=== PATIENT | female | born 1985 | race Caucasian/White ===

== ENCOUNTER 2016-11-06 06:32 | Inpatient (IN) | payer MEDICAID ==
[~2016-11-06] VITALS: Ht 170.2 cm; Wt 69.9 kg
--- NOTE | ~2016-11-06 | OR ---
PATIENT'S NAME: [facility] AGE: 30 Y [address] ROOM: [place] [address] LOCATION: GOBS ADMIT DATE: 11/06/2016 OR/Procedure Report DISCHARGE DATE: FAMILY PHYSICIAN: Elma Wagner MD ATTENDING PHYSICIAN: IGNACIO RUSSELL SURGEON: Ignacio Russell MD LAUNCH CHECK OUT: Elma Wagner M.D. Her assistance was required for delivery of fetus and adequate exposure during the case. DATE OF PROCEDURE: 11/06/2016 PREOPERATIVE DIAGNOSES: 1. Intrauterine at 39 weeks, 6 days. 2. History of 3 previous sections. 3. Gestational diabetes mellitus A2. 4. Late presentation to care. POSTOPERATIVE DIAGNOSES: 1. Intrauterine at 39 weeks, 6 days. 2. History of 3 previous sections. 3. Gestational diabetes mellitus A2. 4. Late presentation to care. PROCEDURE PERFORMED: Repeat low transverse section. ANESTHESIA: Spinal. FINDINGS: Viable female infant with Apgars of 6 and 8 and weight of 8 pounds 10 ounces. Placenta with three-vessel cord intact. Normal fallopian tubes and ovaries. Normal uterus. Uterine atony. ESTIMATED BLOOD LOSS: 800 mL. COMPLICATIONS: None. INDICATIONS: The patient is a 30-year-old, -0-0-3, with intrauterine at 39 weeks 6 days, who presented to Labor and Delivery for scheduled repeat section. She has previously been counseled about the risks of surgery including bleeding, infection, damage to surrounding organs and tissues including bowel, bladder, blood vessels, ureters, nerves. She was also counseled on the risk of needing additional procedures or hospitalizations due to any complications. Prior to the procedure, the patient's blood sugar was checked and it was found to be 83. She did not take her glyburide last night. [facility] 30 [facility] [address] ROOM: [place] [address] LOCATION: [facility] ADMIT DATE: 11/06/2016 OR/Procedure Report DISCHARGE DATE: FAMILY PHYSICIAN: Elma Wagner MD ATTENDING PHYSICIAN: IGNACIO RUSSELL DESCRIPTION OF PROCEDURE: The patient was taken to the operating room where spinal was placed without complication. Andrade catheter was placed. She was placed in dorsal supine position with leftward tilt. She was prepped and draped in the usual sterile fashion. Anesthesia was found to be adequate. A scalpel was then used to make a Pfannenstiel incision and carried down to the underlying fascia. The fascia was scored the fascial incision was extended with Barr scissors. Bilaterally the fascia was dissected off the rectus muscles superiorly and inferiorly with sharp and blunt traction. The peritoneum was identified and entered bluntly. The peritoneal incision was extended. Bladder blade was placed for visualization. Using Metzenbaum scissors a bladder flap was created. The scalpel was then used to make a transverse incision in the lower uterine segment. This was extended in a cephalad caudal direction. Artificial rupture of membranes of clear fluid was performed. The head was then delivered through the incision followed by the remainder of the infant and the cord was clamped and cut. The was taken over to the warmer by Dr. Wagner. Cord blood was obtained. The placenta was then expressed intact. The membranes were remaining and were all removed. The uterus was exteriorized and cleared of remaining clots and debris. It was noted to be very boggy. She was given 0.2 mg of Methergine IM by the anesthesia providers. The hysterotomy was closed in a running locked fashion using 0 chromic suture. Hemostasis was noted. The uterus continued to be boggy, despite massage and methargen. Therefore, she was given 0.25 mg of Hemabate IM. Uterine tone did improve and the uterus was not noted to be filled in with blood or clot. The hysterotomy was reexamined and noted to be hemostatic. The uterus was placed into the abdominal cavity. Rectus muscles and fascia were inspected and noted to be hemostatic. The fascia was then closed in a running fashion using 0 PDS suture. Subcutaneous tissue was irrigated and an any areas of bleeding were cauterized. The skin was then closed in a subcuticular fashion with 4-0 Monocryl, followed by Steri-Strips and a pressure dressing. Instrument, sponge, and needle counts were correct prior to abdominal closure at the conclusion of the case. DISPOSITION: Mom is stable. Baby to NICU, on CPAP. MD ISMAEL AVILA/modl /[id number] d: 11/06/16 0924 t: 11/07/16 1340, OPERATIVE SUMMARY
[2016-11-06 07:07] LABS: BASOPHIL % 0.3 %; EOSINOPHIL # 0.2 K/uL (0.0-0.5); EOSINOPHIL % 1.7 %; HEMATOCRIT 33.7 % (33.0-46.0); HEMOGLOBIN 10.7 g/dL (11.0-15.0); IMMATURE GRANULOCYTE # 0.1 K/uL (0.0-0.3); IMMATURE GRANULOCYTE % 0.6 %; LYMPHOCYTE # 2.8 K/uL (0.8-4.0); LYMPHOCYTE % 31.6 %; MCH 27.2 pg (27.0-34.0); MCHC 31.8 gm/dL (32.0-36.5); MONOCYTE # 0.7 K/uL (0.0-1.0); MONOCYTE % 8.3 %; MPV 11.4 fl (9.4-12.4); NEUTROPHIL # (ANC) 5.2 K/uL (1.8-7.8); NEUTROPHIL % 57.5 %; NRBC % 0 /100WBC (0-0.00); PLATELET COUNT 187 K/uL (150-450); RBC 3.93 M/uL (3.50-5.00)
[2016-11-06 07:08] LABS: MCV 85.8 fl (83.0-98.0)
[2016-11-06] MEDS ORDERED: FEOSOL325 MG PO (07:20)
[2016-11-06] MEDS ORDERED: PRENATAL 1+1)(P1 TAB PO (07:20)
[2016-11-06] MEDS ORDERED: DIABETES MEDICATION (07:21)
[2016-11-07 04:53] LABS: BASOPHIL % 0.2 %; EOSINOPHIL # 0.1 K/uL (0.0-0.5); HEMOGLOBIN 8.3 g/dL (11.0-15.0); IMMATURE GRANULOCYTE # 0.1 K/uL (0.0-0.3); IMMATURE GRANULOCYTE % 0.7 %; LYMPHOCYTE # 1.8 K/uL (0.8-4.0); LYMPHOCYTE % 13.5 %; MCH 27.5 pg (27.0-34.0); MCV 87.1 fl (83.0-98.0); MONOCYTE # 1.1 K/uL (0.0-1.0); MONOCYTE % 7.9 %; MPV 11.1 fl (9.4-12.4); NEUTROPHIL # (ANC) 10.4 K/uL (1.8-7.8); NEUTROPHIL % 76.7 %; NRBC % 0 /100WBC (0-0.00); RBC 3.02 M/uL (3.50-5.00); RDW-CV 16.1 % (11.9-14.6); WBC 13.5 K/uL (4.0-11.0)
[2016-11-07 04:56] LABS: HEMATOCRIT 26.3 % (33.0-46.0); MCHC 31.6 gm/dL (32.0-36.5); PLATELET COUNT 135 K/uL (150-450)
--- NOTE | 2016-11-08 07:00 | NUR ---
D; Upon entering patient's room to introduce myself (at 0700) patient is wide awake, alert & oriented. Asking for more formula bottles, stating it's time for baby to eat. I: More Similac given & Mom fed baby 40mls at 0715. R: Held baby close , face to face, during feeding. Burped baby appropriately. P: Pt planning home today sometime after lunch. Awaiting Dr Xiao Wagner & Drew for dismissal order. Care management, Oneyda, to see again today.
[2016-11-08] MEDS ORDERED: SURFAK240 MG PO (13:02)
[2016-11-08] MEDS ORDERED: MOTRIN800 MG PO (13:03)
[2016-11-08] MEDS ORDERED: PERCOCET 5-3251 EACH PO (13:03)
--- NOTE | 2016-11-08 14:00 | NUR ---
D: Mom & Dad of infant very apppropriate & attentive w/ discharge instructions. I: Asked appropriate questions & listened attentively to teaching. Appears excited & happy to be taking baby home. R: Have a nice carseat & watched carefully when taught how to use. P: Plan dismissal now, to car per wheelchair.
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
== END 2016-11-08 14:15 | disposition disaster alternative care site (69) | DRG 766 ==
LOC: GOBS 06:32
PROVIDERS: ADMIT Obstetrics & Gynecology
PROC: 10D00Z1 Extraction of Products of Conception, Low, Open Approach (ICD-10-PCS; principal; 2016-11-06)
DX: O34.219 Maternal care for unspecified type scar from previous cesarean delivery (principal); O24.429 Gestational diabetes mellitus in childbirth, unspecified control; Z3A.39 39 weeks gestation of pregnancy; Z37.0 Single live birth
CPT/HCPCS: J0690; J1885; J2210; J7120; P9045